=== PATIENT | female | born 1990 | race Hispanic/Latino ===

== ENCOUNTER 2023-02-09 13:52 | Outpatient (CLI) | payer OTHER | END 2023-02-09 13:53 | disposition home or self-care (01) | LOC: CSHULT 13:52 | PROVIDERS: ATTEND Family Medicine | DX: O09.892 Supervision of other high risk pregnancies, second trimester (principal); Z3A.25 25 weeks gestation of pregnancy | CPT/HCPCS: 76805 ==

== ENCOUNTER 2023-04-28 14:40 | Inpatient (IN) | payer OTHER ==
[2023-04-28 15:10] VITALS: BMI 43.6
[2023-04-28] MEDS ORDERED: Ondansetron PF 4 MG/2 ML Vial IVP PRN (21:40)
[2023-04-28] MEDS ORDERED: Promethazine HCl 25 MG/ML VIAL IM PRN (21:40)
[2023-04-28] MEDS ORDERED: hydrALAZINE 20 MG/ML VIAL SLOW IVP PRN ×3 (21:40→23:45)
[2023-04-28] MEDS ORDERED: Lorazepam 2 MG/ML VIAL SLOW IVP PRN ×2 (21:40→23:45)
[2023-04-28] MEDS ORDERED: Calcium Gluc 4.6 MEQ/10 ML (100 MG/ML) SLOW IVP PRN ×2 (21:40→23:45)
[2023-04-28] MEDS ORDERED: NS w/ Oxytocin 30 units 500 ML IV SCH (21:45)
[2023-04-28] MEDS ORDERED: Labetalol HCl 100 MG TAB PO SCH (22:00)
[2023-04-28 22:40] LABS: Hemoglobin 11.8 g/dL (12.0-15.5); Mean Corpuscular HGB CONC 32.6 g/dL (32.0-36.0); Mean Corpuscular Volume 88.9 fl (81.6-98.3); Mean Platelet Volume 10.3 fl (7.4-10.4); Platelet Count 299 10x3/uL (150-450); RBC Distribution Width 14.2 % (11.5-14.5); Red Blood Cell (RBC) Count 4.07 10x6/uL (3.90-5.03); White Blood Cell (WBC) Count 6.8 10x3/uL (3.5-10.5)
[2023-04-28 22:48] LABS: ALT (SGPT) 21 U/L (8-55); AST (SGOT) 37 U/L (5-34); Albumin 3.4 g/dL (3.5-5.0); Alkaline Phosphatase 114 U/L (40-110); Anion Gap 15 mmol/L (10-20); BUN (Urea Nitrogen) 10 mg/dL (7.0-18.7); Bilirubin, Total 0.3 mg/dL (0.2-1.2); Calc. Creatinine Clearance 202 mL/min (70-130); Calcium 9.1 mg/dL (7.8-10.44); Carbon Dioxide 20 mmol/L (22-29); Chloride 105 mmol/L (98-107); Estimated GFR 97; Glucose 92 mg/dL (70-105); Potassium 3.8 mmol/L (3.5-5.1); Protein, Total 6.4 g/dL (6.0-8.3); Sodium 136 mmol/L (136-145)
[2023-04-28 23:05] LABS: Creatinine, Urine 65.51 mg/dL (47-110)
[2023-04-28 23:05] LABS: HBSAg Index 0.18 S/CO (0-0.99); Hep B Surf Ag - L&D Non-Reactive S/CO (NonReactive); Syphilis Antibody Nonreactive (Nonreactive); Syphilis Antibody Index 0.05 S/CO (<1.00 Non-Reactive)
[2023-04-28] MEDS ORDERED: Magnesium Sulfate 20 gm/500 ml 20 GM/500 ML BAG ONE (23:10)
[2023-04-28] MEDS ORDERED: Magnesium Sulfate 20 gm/500 ml 4 GM/100 ML BAG IVPB SCH (23:45)
[2023-04-28] MEDS ORDERED: Magnesium Sulfate 20 gm/500 ml 20 GM/500 ML BAG IVPB SCH (23:45)
[2023-04-28] MEDS ORDERED: Labetalol HCl 100 MG/20 ML VIAL SLOW IVP PRN ×2 (23:45)
[2023-04-29] MEDS ORDERED: Acetaminophen 500 MG TAB PO SCH (05:45)
[2023-04-29] MEDS ORDERED: Morphine PF 10 MG/10 ML VIAL ONE (07:06)
[2023-04-29] MEDS ORDERED: ePHEDrine Sulfate 50 MG/10 ML VIAL ONE (07:06)
[2023-04-29] MEDS ORDERED: PHENYLEPHRINE-NS 100 MCG/ML 10 ML SYRINGE ONE (07:07)
[2023-04-29] MEDS ORDERED: Ondansetron PF 4 MG/2 ML Vial ONE (07:07)
[2023-04-29] MEDS ORDERED: Dexamethasone 4 mg/ml Vial ONE (07:07)
[2023-04-29] MEDS ORDERED: Ketorolac Tromethamine 30 MG/ML VIAL ONE (07:07)
[2023-04-29] MEDS ORDERED: Oxytocin 10 UNITS/ML VIAL ONE ×2 (07:07→08:28)
[2023-04-29] MEDS ORDERED: Glycopyrrolate 0.2 MG/ML 5 ML SYRINGE ONE (07:07)
[2023-04-29] MEDS ORDERED: CEFAZOLIN 2 GM VIAL ONE (07:09)
[2023-04-29] MEDS ORDERED: Famotidine/PF 20 mg/2ml Vial ONE (07:09)
[2023-04-29] MEDS ORDERED: Misoprostol 200 MCG TAB ONE (07:09)
[2023-04-29] MEDS ORDERED: Carboprost 250 MCG/ML AMP ONE ×2 (07:09→08:28)
[2023-04-29] MEDS ORDERED: Tranexamic Acid 1,000 MG/10 ML VIAL ONE (07:09)
[2023-04-29] MEDS ORDERED: Sodium Chloride 0.9% 200 ML ONE (07:09)
[2023-04-29] MEDS ORDERED: diphenhydrAMINE 50 MG/ML VIAL IVP PRN ×2 (07:17→09:16)
[2023-04-29] MEDS ORDERED: Promethazine HCl 25 MG/ML VIAL IM PRN ×2 (07:17→09:16)
[2023-04-29] MEDS ORDERED: Moisturizing Cream (Eucerin) 113 GM JAR TOP PRN (07:17)
[2023-04-29] MEDS ORDERED: Ondansetron HCl/PF 4 MG/2 ML Vial IVP PRN (07:17)
[2023-04-29] MEDS ORDERED: Naloxone HCl 0.4 mg/ml Vial IVP PRN ×2 (07:17)
[2023-04-29] MEDS ORDERED: Ketorolac Tromethamine 30 MG/ML VIAL IVP PRN (07:17)
[2023-04-29] MEDS ORDERED: Fentanyl 100 MCG/2 ML VIAL SLOW IVP PRN (07:17)
[2023-04-29] MEDS ORDERED: Naloxone HCl 0.4 mg/ml Vial IV PRN ×2 (07:17→09:16)
[2023-04-29] MEDS ORDERED: Ondansetron PF 4 MG/2 ML Vial IVP PRN ×2 (07:17→09:16)
[2023-04-29] MEDS ORDERED: Promethazine HCl 25 MG SUPP PR PRN (07:17)
[2023-04-29] MEDS ORDERED: Meperidine HCl/PF 25 MG/ML VIAL SLOW IVP PRN (07:17)
[2023-04-29] MEDS ORDERED: Communication Order-Pharmacy FS SCH (07:30)
[2023-04-29] MEDS ORDERED: Ketorolac Tromethamine 30 MG/ML VIAL IVP SCH (07:30)
[2023-04-29] MEDS ORDERED: Succinylcholine 200 MG/10 ml SYRINGE FS ONE (08:13)
[2023-04-29] MEDS ORDERED: PROPOFOL 20 ML ONE (08:13)
[2023-04-29] MEDS ORDERED: fentaNYL 50 mcg/mL 1 mL Vial ONE (08:13)
[2023-04-29] MEDS ORDERED: Midazolam HCl 2 mg/2 ml Vial ONE (08:14)
[2023-04-29] MEDS ORDERED: Phenylephrine 40 MG/NS 250 ML 250 ML ONE (08:40)
[2023-04-29] MEDS ORDERED: diphenhydrAMINE 25 MG CAP PO PRN ×2 (09:16→19:32)
[2023-04-29] MEDS ORDERED: FENTANYL 500 MCG/10 ML VIAL 2,000 MCG in Sodium Chloride 0.9% 60 ML IV PRN (09:16)
[2023-04-29] MEDS ORDERED: diphenhydrAMINE 50 MG/ML VIAL IM PRN (09:16)
[2023-04-29] MEDS ORDERED: Zolpidem Tartrate 5 MG TAB PO PRN (09:16)
[2023-04-29] MEDS ORDERED: FENTANYL 500 MCG/10 ML VIAL 1,000 MCG in Sodium Chloride 0.9% 30 ML IV PRN (09:30)
[2023-04-29] MEDS ORDERED: Communication Order-Pharmacy FS PRN (09:30)
[2023-04-29] MEDS: Labetalol HCl 100 MG TAB PO SCH ×2 (13:39→19:45)
[2023-04-29] MEDS ORDERED: Simethicone Chewable 80 MG TAB PO PRN (19:32)
[2023-04-29] MEDS ORDERED: Bisacodyl 10 MG SUPP PR PRN (19:32)
[2023-04-29] MEDS ORDERED: Lorazepam 2 MG/ML VIAL SLOW IVP PRN (19:32)
[2023-04-29] MEDS ORDERED: Boostrix 0.5 ML (Tdap) VIAL (>/=7 yrs of age) IM ONE (19:32)
[2023-04-29] MEDS ORDERED: Lanolin Ointment 7 GM TUBE TOP PRN (19:32)
[2023-04-29] MEDS ORDERED: Calcium Gluc 4.6 MEQ/10 ML (100 MG/ML) SLOW IVP PRN (19:32)
[2023-04-29] MEDS ORDERED: hydrALAZINE 20 MG/ML VIAL SLOW IVP PRN (19:32)
[2023-04-29] MEDS ORDERED: HYDROcodone/Acetaminophen 5/325 mg Tablet PO PRN (19:32)
[2023-04-29] MEDS: Ketorolac Tromethamine 30 MG/ML VIAL IVP SCH (20:57)
[2023-04-29] MEDS ORDERED: Magnesium Sulfate 20 GM/WATER 500 ML BAG IVPB SCH (21:30)
[2023-04-29] MEDS: Docusate 100 MG CAP PO SCH (23:56)
[2023-04-29] MEDS: Ferrous Sulfate 325 MG TAB PO SCH (23:56)
[2023-04-30] MEDS ORDERED: Acetaminophen 500 MG TAB PO PRN (00:04)
[2023-04-30] MEDS: Ketorolac Tromethamine 30 MG/ML VIAL IVP SCH ×3 (03:13→13:46)
[2023-04-30 04:35] LABS: Magnesium 5.4 mg/dL (1.6-2.6)
[2023-04-30 05:03] LABS: Hemoglobin 7.7 g/dL (12.0-15.5); Mean Corpuscular HGB CONC 33.2 g/dL (32.0-36.0); Mean Corpuscular Hemoglobin 29.5 pg (27.0-33.0); Mean Corpuscular Volume 88.9 fl (81.6-98.3); Mean Platelet Volume 10.5 fl (7.4-10.4); Platelet Count 267 10x3/uL (150-450); RBC Distribution Width 14.4 % (11.5-14.5); Red Blood Cell (RBC) Count 2.61 10x6/uL (3.90-5.03); White Blood Cell (WBC) Count 10.2 10x3/uL (3.5-10.5)
[2023-04-30] MEDS: Prenatal Vitamin 1 TAB PO SCH (09:00)
[2023-04-30] MEDS: Docusate 100 MG CAP PO SCH ×2 (09:00→21:42)
[2023-04-30] MEDS: Ferrous Sulfate 325 MG TAB PO SCH ×2 (09:01→21:42)
[2023-04-30] MEDS: NIFEdipine XL 30 MG TAB PO SCH (09:01)
[2023-04-30] MEDS ORDERED: cloNIDine 0.1 MG TAB PO PRN (09:46)
[2023-04-30] MEDS: HYDROcodone/Acetaminophen 5/325 mg Tablet PO PRN ×2 (13:43→21:42)
[2023-04-30] MEDS: Ondansetron PF 4 MG/2 ML Vial IVP PRN ×2 (15:48→21:42)
[2023-04-30] MEDS: Ibuprofen 800 MG TAB PO SCH (22:12)
[2023-05-01] MEDS: Ibuprofen 800 MG TAB PO SCH ×3 (05:13→21:10)
[2023-05-01] MEDS: Ferrous Sulfate 325 MG TAB PO SCH ×2 (07:59→21:10)
[2023-05-01] MEDS: Docusate 100 MG CAP PO SCH ×2 (07:59→21:10)
[2023-05-01] MEDS: Prenatal Vitamin 1 TAB PO SCH (07:59)
[2023-05-01] MEDS: NIFEdipine XL 30 MG TAB PO SCH (08:51)
[2023-05-01] MEDS: Ondansetron PF 4 MG/2 ML Vial IVP PRN ×2 (09:45→13:58)
[2023-05-01] MEDS ORDERED: NIFEdipine XL 30 MG TAB PO SCH (13:30)
[2023-05-01] MEDS: Lactated Ringer's 1,000 ML IV SCH ×2 (13:58→23:26)
[2023-05-01] MEDS: Fioricet 325/50/40 mg Tablet PO PRN ×2 (13:59→20:16)
[2023-05-01] MEDS: Promethazine HCl 25 MG/ML VIAL IM PRN ×2 (14:54→19:54)
[2023-05-02] MEDS: Lactated Ringer's 1,000 ML IV SCH (04:55)
[2023-05-02] MEDS: Ibuprofen 800 MG TAB PO SCH (05:47)
[2023-05-02] MEDS: Docusate 100 MG CAP PO SCH (09:17)
[2023-05-02] MEDS: Prenatal Vitamin 1 TAB PO SCH (09:18)
[2023-05-02] MEDS: Ferrous Sulfate 325 MG TAB PO SCH (09:18)
[2023-05-02] MEDS: NIFEdipine XL 30 MG TAB PO SCH (09:18)
[2023-05-02] MEDS: Fioricet 325/50/40 mg Tablet PO PRN (09:18)
[2023-05-02 10:48] VITALS: TEMP 98.1
[2023-05-02] MEDS ORDERED: Ketorolac Tromethamine 30 MG/ML VIAL IVP SCH (12:00)
[2023-05-02 16:14] VITALS: BP 127/71
[2023-05-03] MEDS ORDERED: Ibuprofen 800 MG TAB PO SCH (06:00)
== END 2023-05-02 18:55 | disposition home or self-care (01) | DRG 787 ==
LOC: CSHLD/OP 14:40 → CSHLD 21:54 → OBSVTOIN 04-29 08:00 → CSHLD 04-29 19:25 → CSHPP 04-30 10:40
PROVIDERS: ADMIT Family Medicine; ATTEND Family Medicine
PROC: 10D00Z1 Extraction of Products of Conception, Low, Open Approach (ICD-10-PCS; principal; 2023-04-29)
PROC: 3E0P05Z Introduction of Adhesion Barrier into Female Reproductive, Open Approach (ICD-10-PCS; 2023-04-29)
DX: O36.5930 Maternal care for other known or suspected poor fetal growth, third trimester, not applicable or unspecified (principal); O72.1 Other immediate postpartum hemorrhage; Z3A.37 37 weeks gestation of pregnancy; Z37.0 Single live birth; O99.214 Obesity complicating childbirth; O24.420 Gestational diabetes mellitus in childbirth, diet controlled; O34.211 Maternal care for low transverse scar from previous cesarean delivery; E66.01 Morbid (severe) obesity due to excess calories; Z79.899 Other long term (current) drug therapy; O14.14 Severe pre-eclampsia complicating childbirth; O32.1XX0 Maternal care for breech presentation, not applicable or unspecified
CPT/HCPCS: 36415; 36416; 51702; 76815; 76819; 80053; 82570; 83735; 84156; 85027; 86780; 86850; 86900; 86901; 87340; 99285; J0360; J1100; J1885; J2250; J2274; J2405; J2550; J2590; J2704; J3010; J3475; J3490; J7120; S0028

== ENCOUNTER 2024-09-04 09:48 | Inpatient (IN) | payer OTHER, MEDICAID ==
[2024-09-03 13:41] LABS: Hematocrit 32.7 % (34.9-44.5); Hemoglobin 10.2 g/dL (12.0-15.5); Platelet Count 306 10x3/uL (150-450)
[2024-09-03 14:15] LABS: HBsAg Index 0.23 S/CO (0-0.99); Hep B Surf Ag Non-Reactive S/CO (NonReactive)
[2024-09-03 14:16] LABS: Syphilis Antibody Nonreactive (Nonreactive); Syphilis Antibody Index 0.04 S/CO (<1.00 Non-Reactive)
[2024-09-04] MEDS ORDERED: Promethazine HCl 25 MG/ML VIAL IM PRN ×3 (11:09→15:42)
[2024-09-04] MEDS ORDERED: Ondansetron PF 4 MG/2 ML Vial IVP PRN ×4 (11:09→15:42)
[2024-09-04] MEDS ORDERED: Lactated Ringer's 1,000 ML IV SCH (11:09)
[2024-09-04] MEDS ORDERED: Carboprost 250 MCG/ML AMP IM PRN (11:09)
[2024-09-04] MEDS ORDERED: Tranexamic Acid 1,000 MG/10 ML VIAL IVP PRN (11:09)
[2024-09-04] MEDS ORDERED: Bicitra 30 ML UDCUP PO PRN (11:09)
[2024-09-04] MEDS ORDERED: Misoprostol 200 MCG TAB PR PRN (11:09)
[2024-09-04] MEDS ORDERED: Diphenoxylate HCl/Atropine Tablet PO PRN (11:09)
[2024-09-04] MEDS ORDERED: Methylergonovine 0.2 MG/ML VIAL IM PRN (11:09)
[2024-09-04] MEDS ORDERED: Oxytocin 30 units/NS 500 ML 500 ML IV SCH (11:09)
[2024-09-04] MEDS ORDERED: Azithromycin 500 MG in Sodium Chloride 0.9% 250 ML 250 ML IVPB SCH (11:09)
[2024-09-04] MEDS ORDERED: hydrALAZINE 20 MG/ML VIAL SLOW IVP PRN ×2 (11:09→15:42)
[2024-09-04 11:15] VITALS: BMI 38.0
[2024-09-04] MEDS: Famotidine/PF 20 mg/2ml Vial SLOW IVP PRN (11:32)
[2024-09-04] MEDS ORDERED: fentaNYL 50 mcg/mL 1 mL Vial SLOW IVP PRN (11:55)
[2024-09-04] MEDS ORDERED: Naloxone HCl 0.4 mg/ml Vial IV PRN (11:55)
[2024-09-04] MEDS ORDERED: Moisturizing Cream (Eucerin) 113 GM JAR TOP PRN (11:55)
[2024-09-04] MEDS ORDERED: Naloxone HCl 0.4 mg/ml Vial IVP PRN ×2 (11:55)
[2024-09-04] MEDS ORDERED: Meperidine HCl/PF 25 MG (1 mL) VIAL SLOW IVP PRN (11:55)
[2024-09-04] MEDS ORDERED: diphenhydrAMINE 50 MG/ML VIAL IVP PRN (11:55)
[2024-09-04] MEDS ORDERED: Communication Order-Pharmacy FS SCH (12:00)
[2024-09-04] MEDS: ePHEDrine Sulfate 50 MG/10 ML VIAL ONE ×2 (15:08→17:53)
[2024-09-04] MEDS ORDERED: Simethicone Chewable 80 MG TAB PO PRN (15:42)
[2024-09-04] MEDS ORDERED: Bisacodyl 10 MG SUPP PR PRN (15:42)
[2024-09-04] MEDS ORDERED: Meperidine HCl/PF 25 MG (1 mL) VIAL IM PRN (15:42)
[2024-09-04] MEDS ORDERED: Lanolin Ointment 7 GM TUBE TOP PRN (15:42)
[2024-09-04] MEDS ORDERED: diphenhydrAMINE 25 MG CAP PO PRN (15:42)
[2024-09-04] MEDS ORDERED: HYDROcodone/Acetaminophen 5/325 mg Tablet PO PRN (15:42)
[2024-09-04] MEDS ORDERED: Boostrix 0.5 ML (Tdap) VIAL (>/=7 yrs of age) IM ONE (15:42)
[2024-09-04] MEDS: CEFAZOLIN 2 GM VIAL ONE (17:53)
[2024-09-04] MEDS: Dexmedetomidine 200 MCG/2 ML VIAL ONE (17:53)
[2024-09-04] MEDS: CEFAZOLIN 3 GM, Admixture Fee 1 EACH in Sodium Chloride 0.9% 100 ML IVPB SCH (17:53)
[2024-09-04] MEDS: PHENYLEPHRINE-NS 100 MCG/ML 10 ML SYRINGE ONE (17:54)
[2024-09-04] MEDS: Ketorolac Tromethamine 30 MG (1 mL) VIAL ONE (17:54)
[2024-09-04] MEDS: Morphine PF 10 MG/10 ML VIAL ONE (17:54)
[2024-09-04] MEDS: Oxytocin 10 UNITS/ML VIAL ONE (17:54)
[2024-09-04] MEDS: Sodium Chloride 0.9% 10 ML ONE (17:54)
[2024-09-04] MEDS: Ondansetron PF 4 MG/2 ML Vial ONE (17:54)
[2024-09-04] MEDS: Phenylephrine 40 MG/NS 250 ML 250 ML ONE (17:54)
[2024-09-04] MEDS: Promethazine HCl 25 MG/ML VIAL ONE (17:54)
[2024-09-04] MEDS ORDERED: Ketorolac Tromethamine 30 MG (1 mL) VIAL IVP SCH (18:30)
[2024-09-04] MEDS ORDERED: Ketorolac Tromethamine 30 MG (1 mL) VIAL IVP PRN (18:30)
[2024-09-04] MEDS: Ketorolac Tromethamine 30 MG (1 mL) VIAL IVP SCH (18:32)
[2024-09-04] MEDS: Ferrous Sulfate 325 MG TAB PO SCH (21:17)
[2024-09-04] MEDS: Docusate 100 MG CAP PO SCH (21:17)
[2024-09-04] MEDS: CEFAZOLIN 2 GM in Sodium Chloride 0.9% 100 ML IVPB SCH (21:17)
[2024-09-05 04:31] LABS: Hematocrit 27.5 % (34.9-44.5); Hemoglobin 8.3 g/dL (12.0-15.5); Mean Corpuscular HGB CONC 30.2 g/dL (32.0-36.0); Mean Corpuscular Hemoglobin 23.7 pg (27.0-33.0); Mean Corpuscular Volume 78.6 fL (81.6-98.3); Mean Platelet Volume 9.4 fL (7.4-10.4); Platelet Count 250 10x3/uL (150-450); RBC Distribution Width 16.5 % (11.5-14.5)
[2024-09-05] MEDS: HYDROcodone/Acetaminophen 5/325 mg Tablet PO PRN (08:51)
[2024-09-05] MEDS: Prenatal Vitamin 1 TAB PO SCH (08:51)
[2024-09-05] MEDS: Ibuprofen 800 MG TAB PO SCH (14:21)
[2024-09-06] MEDS: Cephalexin 500 MG CAP PO SCH (15:59)
[2024-09-07 08:07] VITALS: BP 109/72; TEMP 98.2
== END 2024-09-07 16:50 | disposition home or self-care (01) | DRG 788 ==
LOC: CSHLD 09:48 → CSHPP 15:48
PROVIDERS: ADMIT Family Medicine; ATTEND Family Medicine
PROC: 10D00Z1 Extraction of Products of Conception, Low, Open Approach (ICD-10-PCS; principal; 2024-09-04)
DX: O34.211 Maternal care for low transverse scar from previous cesarean delivery (principal); O99.214 Obesity complicating childbirth; Z79.4 Long term (current) use of insulin; Z79.82 Long term (current) use of aspirin; O24.425 Gestational diabetes mellitus in childbirth, controlled by oral hypoglycemic drugs; O34.10 Maternal care for benign tumor of corpus uteri, unspecified trimester
CPT/HCPCS: 36415; 36416; 51702; 85014; 85018; 85027; 85049; 86780; 86850; 86900; 86901; 87340; C1889; J1885; J2274; J2405; J2550; J2590; J3490